=== PATIENT | female | born 1980 | race Caucasian/White ===

== ENCOUNTER → 2021-03-26 11:09 | Outpatient (CLI) | payer BC, SELFPAY ==
--- NOTE | ~2021-03-26 | MR_ITS ---
EXAMINATION: MR ankle RT wo con DATE: 03/26/2021 12:04 INDICATION: Chronic right ankle pain TECHNIQUE: Magnetic resonance imaging (MRI) of the right ankle was performed without intravenous cont rast. Sequences included sagittal, coronal, and axial proton-density weighted fast spin echo without and with fat saturation. COMPARISON: None. FINDINGS: Medial ankle ligaments: There is thickening of the superficial deltoid ligament and superomedial component of the spring liga ment complex without surrounding edema consistent with scarring related to chronic sprain. The deep d eltoid ligament ligament as well as the infra plantar longitudinal and medial plantar oblique compone nt of the spring ligament complex are normal. Lateral ankle ligaments: The anterior and posterior inferior tibiofibular ligaments are normal. The anterior talofibular and c alcaneofibular ligaments are also thickened with mild increased signal but without surrounding edema consistent with additional scarring related to chronic sprains. The posterior talofibular ligament is normal. Tendons: Achilles tendon is normal. The peroneus longus and brevis tendons are normal. The tibialis anterior a nd extensor hallucis longus and extensor digitorum longus tendons are normal. The tibialis posterior, flexor digitorum longus and flexor hallucis longus tendons are normal. Plantar fascia: The plantar aponeurosis is normal. Bones/other: Small foci of subarticular edema along the medial rim of the medial tibial plateau and along the dist al articular surface of the navicular the lateral margin of the articulation with the medial cuneifor m likely related to overlying chondromalacia. There is more prominent marrow edema at the lateral cun eiform without evident fracture line. There is prominent band of fluid signal extending across the pr oximal metaphyseal region of the fifth metatarsal where there is also circumferential band of cortica l thickening consistent with some callus formation which could represent either healing of a discrete post traumatic fracture or response to an ongoing high-grade stress injury. No complete linear fract ure plane across the medullary space. Lisfranc ligament complex is normal. Sinus Tarsi and tarsal andrew misty are unremarkable. Fluid: Physiologic amount fluid in the joint spaces. Small amount of fluid along the tibialis posterior tend on consistent with mild tenosynovitis. IMPRESSION: 1. Either healing nondisplaced fracture or ongoing high-grade stress injury at the proximal metadiaph ysis of the right fifth metatarsal. 2. Additional prominent marrow edema at the lateral cuneiform which could be degenerative or reactive related to relatively recent trauma without evident fracture. 3. Scarring consistent with chronic sprains of the anterior talofibular and calcaneofibular ligaments at the lateral ankle and of the anterior deltoid ligament and superomedial component of the spring l igament complex at the medial ankle and hindfoot. 4. 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 Reviewed, dictated and finalized at location A. ANALYST IMPRESSION: 1. Either healing nondisplaced fracture or ongoing high-grade stress injury at the proximal metadiaphysis of the right fifth metatarsal. 2. Additional prominent marrow edema at the lateral cuneiform which could be de generative or reactive related to relatively recent trauma without evident frac ture. 3. Scarring consistent with chronic sprains of the anterior talofibular and elise caneofibular ligaments at the lateral ankle and of the anterior deltoid ligam
== END ==
PROVIDERS: Visit Provider Orthopaedic Surgery
DX: M25.571 Pain in right ankle and joints of right foot (principal); G89.29 Other chronic pain
CPT/HCPCS: 73721